=== PATIENT | female | born 1955 | race Two or more races ===

== ENCOUNTER 2016-05-25 10:22 | Emergency (ER) | payer SELFPAY ==
[~2016-05-25] VITALS: Ht 157.5 cm; Wt 73.5 kg
[2016-05-25] MEDS ORDERED: NKM (10:45)
[2016-05-25] MEDS ORDERED: Methocarbamol 750mg tab ORAL ONE (11:00)
--- NOTE | 2016-05-25 11:03 | Emergency Room Report ---
History of Present Illness General Chief Complaint: Multiple Trauma/Fall Source: Patient Present Illness HPI 61 YO F presents with right knee pain, right shoulder pain and left neck pain s/ p accidental fall off 3 steps while reaching for something in closet yesterday afternoon at 3pm. Denies hitting head, LOC, taking ASA or AC medication or previus traumatic injury to those areas. Walking with limp with pain to right knee when ambulating. Took 2 advil yesterday with improvement in pain. Allergies: Coded Allergies: No Known Allergies (Unverified , 05/25/16) Patient History Past Medical History: none Past Surgical History: none Pertinent Family History: none Social History: Denies: alcohol use, drug use, smoking Now: No Immunizations: UTD Reviewed Nursing Documentation: PMH: Agreed, PSxH: Agreed Nursing Documentation-PMH Hx Asthma: Yes Review of Systems All Other Systems: negative except mentioned in HPI Physical Exam Vital Signs Date Time Temp Pulse Resp B/P Pulse Ox O2 Delivery O2 Flow Rate FiO2 05/25/16 10:38 97.7 65 16 182/82 98 Room Air Sp02 EP Interpretation: reviewed, normal General Appearance: normal inspection, well appearing, no apparent distress, alert, GCS 15, non-toxic Head: normocephalic, atraumatic Eyes: bilateral eye EOMI, bilateral eye PERRL ENT: normal ENT inspection, hearing grossly normal, normal voice Neck: normal inspection, full range of motion, supple, no bony tend, other - No midline c-spine ttp. ++left paravertebral ttp with reduced ROM d/t pain Respiratory: normal inspection, lungs clear, normal breath sounds, no respiratory distress, no retraction, no wheezing Cardiovascular #1: regular rate, rhythm, no edema Gastrointestinal: normal inspection, normal bowel sounds, non tender, soft, no guarding, no hernia Genitourinary: no CVA tenderness Musculoskeletal: normal inspection, back normal, normal range of motion, non- tender, pelvis stable, Peace's Sign negative, other - Right proximal/lateral fibula ttp. Right upper humerus/shoulder ttp. No obvious signs of trauma, bruising or deformity to these areas. ROM intact. Neurologic: normal inspection, alert, oriented x3, responsive, station gateman III-XII nml as tested, motor strength/tone normal, speech normal Psychiatric: normal inspection, judgement/insight normal, mood/affect normal Skin: normal inspection, normal color, no rash Medical Decision Making Diagnostic Impression: Primary Impression: Multiple injuries due to trauma Additional Impression: Fall Qualified Codes: W19.XXXA - Unspecified fall, initial encounter ER Course 61 YO F with accidental fall with right shoulder/right tibula and left neck pain. VSS. Afebrile. Physical exam atraumatic. Unlikely acute traumatic injury, fx, dislocation Likely MSK pain, contusion Xrays negative as described below Analgesia provided DC home with PMD followup Other X-Ray Diagnostic Results Other X-Ray Diagnostic Results : X-Ray Ordered: Right shoulder EP Interpretation: Yes Findings: no fractures, no dislocation, no soft tissue swelling Number of Views: 3 Other Impression Right tib fib 2 views ED interpretation No acute fx, dislocation or soft tissue injury Last Vital Signs Date Time Temp Pulse Resp B/P Pulse Ox O2 Delivery O2 Flow Rate FiO2 05/25/16 10:38 97.7 65 16 182/82 98 Room Air Status: improved Disposition: HOME, SELF-CARE IRENA COTO M.D. May 25, 2016 11:03
[2016-05-25] MEDS ORDERED: ROBAXIN-750750 MG PO (11:58)
[2016-05-25] MEDS ORDERED: IBUPROFEN800 MG ORAL (11:58)
[2016-05-25 12:10] VITALS: BP 167/66
--- NOTE | 2016-05-25 13:00 | Diagnostic Imaging Report ---
Indication: Pain Comparison: None Findings: Two views of the right tibia and fibula were obtained. No acute fracture, malalignment, or periosteal reaction are identified. Soft tissues are unremarkable. Impression: Negative examination of the tibia and fibula
--- NOTE | 2016-05-25 13:00 | Diagnostic Imaging Report ---
Indication: Pain Findings: 3 views of the right shoulder were obtained. No acute fractures, malalignment, erosions or periostitis are identified. Bone mineralization is within normal limits. Soft tissues are unremarkable. Impression: Negative examination of the shoulder.
== END 2016-05-25 12:10 | disposition home or self-care (01) ==
LOC: EMR 11:46
DX: T14.90 Injury, unspecified (principal); M25.511 Pain in right shoulder; M79.601 Pain in right arm; M54.2 Cervicalgia; J45.909 Unspecified asthma, uncomplicated; W10.9XXA Fall (on) (from) unspecified stairs and steps, initial encounter; Y92.9 Unspecified place or not applicable; Y99.8 Other external cause status
CPT/HCPCS: 99284